=== PATIENT | male | born 1965 | race Caucasian/White ===

== ENCOUNTER 2021-05-07 11:14 | Inpatient (IN) | payer OTHER ==
[~2021-05-07] VITALS: Ht 172.7 cm; Wt 75.9 kg
[2021-05-07 11:16] VITALS: BP 75/39
[2021-05-07 11:50] LABS: HEMOGLOBIN 9.6 gm/dL (14.0-18.0); MONOCYTES 11.4 % (1.0-8.0)
[2021-05-07 11:53] LABS: ABSOLUTE NEUTROPHILS 10.4 thou/uL (1.4-8.2); BASOPHILS 1.3 % (0.0-2.0); EOSINOPHILS 0.6 % (0.0-3.0); HEMATOCRIT 29.1 % (42.0-52.0); LYMPHOCYTES 12.9 % (24.0-44.0); MCHC 32.9 g/dL (28.0-37.0); MCV 91.2 fL (80.0-100.0); POLYS 73.8 % (36.0-66.0); RBC 3.19 mil/uL (4.50-6.00); RDW 13.8 % (10.5-14.5); WBC 14.1 thou/uL (4.0-11.0)
[2021-05-07 12:05] LABS: ANION GAP 11 mmol/L (7-16); BUN 56 mg/dL (7-18); CALCIUM 8.2 mg/dL (8.5-10.1); CHLORIDE 101 mmol/L (98-107); CO2 21 mmol/L (21-32); CREATININE 2.2 mg/dL (0.7-1.3); GLUCOSE 141 mg/dL (74-106); POTASSIUM 4.4 mmol/L (3.5-5.1); SODIUM 133 mmol/L (136-145)
[2021-05-07 12:16] LABS: ALBUMIN 1.5 g/dL (3.4-5.0); DIRECT BILIRUBIN 0.1 mg/dL (<0.1-0.2); LIPASE 76 U/L (73-393); SGOT 16 U/L (15-37); SGPT 12 U/L (16-63); TOTAL BILIRUBIN 0.3 mg/dL (0.2-1.0); TOTAL PROTEIN 7.1 g/dL (6.4-8.2)
[2021-05-07] MEDS ORDERED: FLUOXETINE HCL40 MG PO (12:41)
[2021-05-07] MEDS ORDERED: LIPITOR 40 MG T40 M1 PO (12:41)
[2021-05-07] MEDS ORDERED: CLOPIDOGREL75 MG PO (12:41)
[2021-05-07] MEDS ORDERED: LISINOPRIL-HCT1 EAC1 PO (12:42)
[2021-05-07] MEDS ORDERED: METFORMIN HCL500 MG (12:43)
[2021-05-07] MEDS ORDERED: TIZANIDINE HCL4 M2 PO (12:43)
[2021-05-07] MEDS ORDERED: OLANZAPINE2.5 MG PO (12:43)
[2021-05-07] MEDS ORDERED: TRAMADOL 50 MG50 MG PO (12:44)
[2021-05-07] MEDS ORDERED: ZYPREXA 5 MG TAB5 M2 PO (12:44)
[2021-05-07 13:29] LABS: URINE BILIRUBIN NEGATIVE (Negative); URINE BLOOD TRACE (Negative); URINE CLARITY SL CLOUDY; URINE COLOR YELLOW; URINE GLUCOSE-RANDOM* NEGATIVE (Negative); URINE KETONES NEGATIVE (Negative); URINE LEUKOCYTES-REFLEX 3+ (Negative); URINE NITRITE-REFLEX POSITIVE (Negative); URINE PROTEIN (DIPSTICK) NEGATIVE (Negative); URINE SPECIFIC GRAVITY <= 1.005 (1.005-1.035); URINE UROBILINOGEN 0.2 E.U./dl (0.2-1.0)
[2021-05-07 13:41] LABS: BACTERIA-REFLEX >30 Many /HPF (None Seen); CASTS None Seen /LPF (None Seen); CRYSTALS None Seen /LPF (None Seen); SQUAMOUS 0-3 Few /LPF (0-3); URINE RBC 1-2 Rare /HPF (NONE SEEN); URINE WBC-REFLEX >25 Many /HPF (0-5)
[2021-05-07 13:59] LABS: PLATELET COUNT 882 thou/uL (150-400)
[2021-05-07 16:26] LABS: % SATURATION 12 % (20-39); IRON 35 ug/dL (65-175); TIBC 301 ug/dL (250-450)
[2021-05-07 20:56] VITALS: BP 167/85
[2021-05-07 23:37] VITALS: BP 98/56
[2021-05-08 03:30] VITALS: BP 99/60
--- NOTE | 2021-05-08 03:51 | NUR ---
PT ADMITTED FROM ER FOR HYPOTENSION, SEPSIS , UTI, RIGHT ANKLE PAIN AND GOUT.BP MODERATELY LOW. IVF NS AT 126 LEFT HAND. TOLERATED HS DINNER TRAY 100%. HYDROCODONE GIVEN FOR GOUT PAIN. AND BENADRYL GIVEN FOR SLEEP. LA WNL NOW. INSTRUCTED PT ON FALL PRECAUTIONS. HE HAS A HX OF CVA X10 WITH LEFT SIDED WEAKNESS. SR -ST ON MONITOR. SCDS ON. BED ALARM IS ON.
--- NOTE | 2021-05-08 06:01 | NUR ---
PT RESTING QUIELTLY. VSS AFEBRILE. MEDICATED FOR C/O R FOOT AND TOE PAIN ROM GOUT. PT RESTING QUIETLY . NO S/S DISTRESS.
[2021-05-08 06:15] LABS: ABSOLUTE NEUTROPHILS 9.2 thou/uL (1.4-8.2); BASOPHILS 0.1 % (0.0-2.0); HEMATOCRIT 23.8 % (42.0-52.0); HEMOGLOBIN 7.8 gm/dL (14.0-18.0); LYMPHOCYTES 7.5 % (24.0-44.0); MCH 29.9 pg (26.0-34.0); MCHC 32.9 g/dL (28.0-37.0); MCV 90.8 fL (80.0-100.0); POLYS 88.4 % (36.0-66.0); RBC 2.62 mil/uL (4.50-6.00); RDW 13.7 % (10.5-14.5); WBC 10.4 thou/uL (4.0-11.0)
[2021-05-08 06:19] LABS: CALCIUM 8.4 mg/dL (8.5-10.1); MAGNESIUM 1.9 mg/dL (1.8-2.4)
[2021-05-08 06:27] LABS: PLATELET COUNT 683 thou/uL (150-400)
[2021-05-08 06:35] LABS: CREATININE 1.2 mg/dL (0.7-1.3); POTASSIUM 5.4 mmol/L (3.5-5.1)
[2021-05-08 07:30] VITALS: BP 83/47
--- NOTE | 2021-05-08 12:44 | EKG ---
[place] [address] 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
--- NOTE | 2021-05-08 12:44 | EKG ---
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
[2021-05-08 13:11] VITALS: BP 96/58
[2021-05-08 15:14] VITALS: BP 97/55
--- NOTE | 2021-05-08 17:30 | NUR ---
PAIN MED GIVEN FOR GOUT PAIN ORDERED. ALERT AND ORIENTED X4, DENIES CHEST PAIN, NUMBNESS OR TINGLING. ON ROOM AIR, NO SIGNS OF DISTRESS. FALL PRECAUTIONS IN PLACE. DENIES ANY NEEDS WILL CONTINUE TO MONITOR
[2021-05-08 19:50] VITALS: BP 86/44
[2021-05-09 04:30] VITALS: BP 130/80
[2021-05-09 06:14] LABS: ALBUMIN 1.5 g/dL (3.4-5.0); CALCIUM 8.3 mg/dL (8.5-10.1); PHOSPHORUS 0.8 mg/dL (2.5-4.9); POTASSIUM 4.8 mmol/L (3.5-5.1)
--- NOTE | 2021-05-09 07:18 | NUR ---
PT MAKING SLOW PROGRESS TOWARDS GOALS. REPORTS PAIN 6/10 IN RIGHT FOOT. TREATMENT WITH LORTAB PER ORDERS. PT REPORTING PAIN AT GOAL AFTER DOSING. CONTINUE TO MONITOR.
[2021-05-09 08:01] VITALS: BP 104/63
[2021-05-09 12:06] VITALS: BP 134/83
[2021-05-09 12:13] VITALS: BP 134/83
--- NOTE | 2021-05-09 12:33 | NUR ---
CARE ASSUMED THIS AM, PT ALERT AND ORIENTED X4. PAIN MED GIVEN FOR GOUT PAIN IN THE RIGHT LEG. ON ROOM AIR, NO SIGNS OF DISTRESS. USES URINAL AND BSC. FALL PRECAUTIONS IN PLACE. VISITING WITH FRIEND NITIN. WILL CONTINUE TO MONITOR.
[2021-05-09 15:23] VITALS: BP 127/74
[2021-05-09 19:51] VITALS: BP 146/82
[2021-05-10 04:06] VITALS: BP 128/79
--- NOTE | 2021-05-10 05:30 | NUR ---
Requested pain med for right ankle/foot gout pain. Hydrocodone given with good relief. Brother at bedside visiting with pt. Assisted to reposition on bed but able to turn self from side to side at times.Left sided weakness from previous stroke. Incontinent of bladder at shift change and again when he woke up this am. Otherwise he uses urinal. Refused to wear SCD's stating it makes the pain worst on his feet. He slept well during the night.
[2021-05-10 08:11] VITALS: BP 96/53
[2021-05-10] MEDS ORDERED: DOXYCYCLINE 10100 MG PO (10:45)
[2021-05-10] MEDS ORDERED: CARDIZEM CD 18180 M3 PO (10:46)
[2021-05-10] MEDS ORDERED: COLCHICINE0.6 M1 PO (10:47)
--- NOTE | 2021-05-10 13:46 | NUR ---
INITIAL ASSESSMENT/DISCHARGE NOTE: Received consult. SUSAN reviewed chart and spoke with nursing and attending physician. Pt was admitted from [facility] due to ankle pain/gout/ hypotension. Pt is medically stable to discharge back to [facility] today. SUSAN faxed clinical info and discharge ppwk to [facility] post-acute liaison for review. Confirmed info was received and that they are able to accept pt back today. Pt is able to be transported via w/c van. SUSAN met with pt at bedside. Introduced role of SW. Pt is alert/orientated x 4. Pt is aware and agreeable with plan to return to [facility] today. Awaiting confirmed transportation time. Chart copy requested. SUSAN is following to finalize discharge plan.
--- NOTE | 2021-05-10 15:11 | NUR ---
PT awaiting transport for d/c. NO SKILLED OT THIS DAY.
--- NOTE | 2021-05-10 16:49 | NUR ---
ASSESSMENT CHARTED. PT ALERT AND ORIENTED WITH FORGETFULNESS. PRN PAIN MED GIVEN WITH PARTIAL RELIEF. SEEN BY DR. DOE. ORDERS GIVEN TO DISCHARGE PT TO HOME. REPORT CALLED IN TO THE FACILITY.
== END 2021-05-10 17:42 | DRG 871 ==
LOC: ER 11:14 → EROBS 15:05 → 3W 15:05
PROVIDERS: Hospitalist; Nurse Practitioner; ADMIT Hospitalist; ATTEND Hospitalist
DX: A41.9 Sepsis, unspecified organism (principal); E43 Unspecified severe protein-calorie malnutrition; N17.0 Acute kidney failure with tubular necrosis; J15.0 Pneumonia due to Klebsiella pneumoniae; N39.0 Urinary tract infection, site not specified; I69.354 Hemiplegia and hemiparesis following cerebral infarction affecting left non-dominant side; Z20.822 Contact with and (suspected) exposure to COVID-19; I95.9 Hypotension, unspecified; E11.9 Type 2 diabetes mellitus without complications; I10 Essential (primary) hypertension; M19.90 Unspecified osteoarthritis, unspecified site; F17.210 Nicotine dependence, cigarettes, uncomplicated; E78.5 Hyperlipidemia, unspecified; M10.072 Idiopathic gout, left ankle and foot; D64.9 Anemia, unspecified; E86.0 Dehydration; E87.5 Hyperkalemia; M10.061 Idiopathic gout, right knee; B96.1 Klebsiella pneumoniae [K. pneumoniae] as the cause of diseases classified elsewhere; Z88.0 Allergy status to penicillin; Z90.49 Acquired absence of other specified parts of digestive tract; Z68.25 Body mass index [BMI] 25.0-25.9, adult; Z71.6 Tobacco abuse counseling
CPT/HCPCS: 10879